=== PATIENT | male | born 1960 | race Two or more races ===

== ENCOUNTER 2023-06-27 02:14 | Inpatient (IN) | payer OTHER, MEDICAID ==
[~2023-06-27] VITALS: Ht 188 cm; Wt 120.0 kg
[2023-06-27 03:12] LABS: Basophils # (auto) 0 10 ^3/uL (0-0.2); Eosinophils # (auto) 0.1 10 ^3/uL (0-0.8); Nucleated Red Blood Cells % 0.1 %
[2023-06-27 03:14] LABS: Basophils % (auto) 0.2 % (0.0-2.0); Eosinophils % (auto) 0.8 % (0.0-7.0); Hematocrit 47.1 % (41.0-53.0); Hemoglobin 15.7 g/dL (13.5-17.5); Lymphocytes # (auto) 0.9 10 ^3/uL (0.4-5.4); Lymphocytes % (auto) 9.8 % (10.0-50.0); Mean Corpuscular Hemoglobin 26.8 pg (28.0-32.0); Mean Corpuscular Hgb Conc. 33.4 g/dL (32.0-36.0); Mean Corpuscular Volume 80.3 fL (80.0-100.0); Monocytes # (auto) 1.3 10 ^3/uL (0-1.3); Monocytes % (auto) 14.2 % (0.0-12.0); Neutrophils # (auto) 7.1 10 ^3/uL (1.6-8.6); Red Blood Cells 5.86 10^6/uL (4.5-5.90); Red Cell Distribution Width 14.6 % (11.8-14.3); White Blood Cell 9.5 10^3/uL (4.4-10.8)
[2023-06-27 03:27] LABS: Chloride 105 mmol/L (98-107); Potassium 3.5 mmol/L (3.5-5.1); Sodium 139 mmol/L (136-145)
[2023-06-27 03:28] LABS: Anion Gap 7 (5-15); Calcium 9.1 mg/dL (8.7-10.4); Carbon Dioxide 27 mmol/L (20-30)
[2023-06-27 03:33] LABS: BUN/Creatinine Ratio 5.4 (10.0-20.0); Blood Urea Nitrogen 7 mg/dL (9-23); Glucose 138 mg/dL (74-106)
[2023-06-27 05:30] VITALS: PULSE 94; RESP 27; O2SAT 96
[2023-06-27] MEDS: cefTRIAXone 1GM/50ML D5W 50 ML IV ONE (05:31)
[2023-06-27] MEDS: AZITHROMYCIN 250 MG TAB PO ONE (05:32)
[2023-06-27] MEDS ORDERED: ONDANSETRON HCL 4 MG/2 ML VIAL IV PRN (07:15)
[2023-06-27] MEDS ORDERED: ALBUTEROL SULF 2.5 MG/0.5ML(0.5%) NEB SOLN NEB PRN (07:15)
[2023-06-27] MEDS ORDERED: FUROSEMIDE 20 MG TAB PO SCH ×2 (07:15→10:00)
[2023-06-27] MEDS ORDERED: MORPHINE SULFATE INJ 2 MG/ml SYRG IV PRN (07:15)
[2023-06-27] MEDS ORDERED: NITROGLYCERIN 0.4 MG SL TAB SL PRN (07:15)
[2023-06-27 07:28] VITALS: BP 133/89; PULSE 82; RESP 19; TEMP 99.2; O2SAT 95; O2SAT 96
[2023-06-27 07:30] VITALS: PULSE 88; RESP 20; O2SAT 94
[2023-06-27] MEDS: ACETAMINOPHEN 325 MG TAB PO PRN (07:50)
[2023-06-27 08:28] LABS: COVID19 ANTIGEN SOFIA FIA POSITIVE (NEGATIVE)
[2023-06-27] MEDS: CARVEDILOL 12.5 MG TAB PO SCH (10:11)
[2023-06-27] MEDS: hydrALAZINE HCL 25 MG TAB PO SCH (10:11)
[2023-06-27] MEDS: SACUBITRIL-VALSARTAN 24mg/26mg TAB PO SCH (10:11)
[2023-06-27] MEDS: FUROSEMIDE 20 MG TAB PO SCH (10:11)
[2023-06-27] MEDS: amLODIPine BESYLATE 5 MG TAB PO SCH (10:12)
[2023-06-27] MEDS: EMPAGLIFLOZIN 10 MG TAB PO SCH (10:41)
[2023-06-27 18:21] VITALS: PULSE 94; RESP 20; O2SAT 95
[2023-06-27] MEDS ORDERED: CLON0.1D7 TOP (19:21)
[2023-06-27] MEDS ORDERED: SACU1TAB7 PO (19:21)
[2023-06-27] MEDS ORDERED: CARV25TA55 PO (19:21)
[2023-06-27] MEDS ORDERED: EMPA1TAB PO (19:21)
[2023-06-27] MEDS ORDERED: CONT1KIT21 (19:21)
[2023-06-27] MEDS ORDERED: DULA0.5I SC (19:21)
[2023-06-27] MEDS ORDERED: HYDR-4297 PO (19:21)
[2023-06-27] MEDS ORDERED: AMLO1TAB23 PO (19:21)
[2023-06-27 20:00] VITALS: PULSE 85; PULSE 97; RESP 20
[2023-06-27 22:00] VITALS: BP_SYST 108; BP_SYST 147; BP_SYST 148; BP_DIAS 56; BP_DIAS 83; PULSE 85; RESP 20; O2SAT 99
[2023-06-27 23:53] LABS: Urine Bacteria NONE SEEN /hpf (None Seen); Urine Blood Negative /uL (Negative); Urine Clarity Clear (Clear); Urine Protein, UAD Negative (Negative); Urine Specific Gravity 1.021 (1.001-1.035); Urine Urobilinogen Normal (Negative); Urine WBC 9 /hpf (0 - 3); Urine pH 7.5 (5.0-8.0)
[2023-06-27 23:54] LABS: Urine Color Straw (Yellow)
[2023-06-28] VITALS (9 sets, daily range): BP systolic 121–162; BP diastolic 72–100; PULSE 9–98; RESP 18–20; TEMP 98.8–100.3; O2SAT 93–97
[2023-06-28 07:59] LABS: Basophils # (auto) 0 10 ^3/uL (0-0.2); Basophils % (auto) 0.5 % (0.0-2.0); Monocytes # (auto) 1.1 10 ^3/uL (0-1.3); Neutrophils # (auto) 5.1 10 ^3/uL (1.6-8.6)
[2023-06-28 08:02] LABS: Eosinophils # (auto) 0.2 10 ^3/uL (0-0.8); Hematocrit 48.4 % (41.0-53.0); Lymphocytes # (auto) 1.3 10 ^3/uL (0.4-5.4); Lymphocytes % (auto) 17.2 % (10.0-50.0); Mean Corpuscular Hemoglobin 26.2 pg (28.0-32.0); Mean Corpuscular Volume 79.2 fL (80.0-100.0); Monocytes % (auto) 13.7 % (0.0-12.0); Neutrophils % (auto) 66.6 % (37.0-80.0); Nucleated Red Blood Cells % 0.5 %; Red Cell Distribution Width 14.7 % (11.8-14.3); White Blood Cell 7.7 10^3/uL (4.4-10.8)
[2023-06-28] MEDS: cefTRIAXone 1GM/50ML D5W 50 ML IV SCH (08:30)
[2023-06-28] MEDS: AZITHROMYCIN 500MG/ 250ML 250 ML IV SCH (09:55)
[2023-06-28] MEDS: ENOXAPARIN SOD 100 MG/1 ML SYRINGE SC STA (11:47)
[2023-06-28 12:15] LABS: INR 1.15 (0.9-1.15); Partial Thromboplastin Time 30.5 SEC (24.5-34.5)
[2023-06-28] MEDS: ALBUTEROL SULF HFA 90MCG INH 200DOSE IN PRN (12:45)
[2023-06-28] MEDS: IOHEXOL 350 MG/ML 100ML IJ ONE (13:15)
[2023-06-28] MEDS: TEMAZEPAM 15 MG CAP PO PRN (22:32)
[2023-06-29] VITALS (9 sets, daily range): BP systolic 109–143; BP diastolic 71–91; PULSE 74–89; RESP 16–19; TEMP 97.5–101.7; O2SAT 94–96
[2023-06-29 09:32] LABS: Magnesium 2.1 mg/dL (1.6-2.6)
[2023-06-29] MEDS: EMPAGLIFLOZIN 10 MG TAB PO SCH (09:49)
[2023-06-29] MEDS: FUROSEMIDE 20 MG/2 ML VIAL IV SCH (09:56)
[2023-06-29] MEDS: ENOXAPARIN SOD 40 MG/0.4 ML SYRINGE SC ONE (12:06)
[2023-06-29] MEDS: SACUBITRIL-VALSARTAN 24mg/26mg TAB PO SCH (21:32)
[2023-06-30] VITALS (7 sets, daily range): BP systolic 114–137; BP diastolic 64–81; PULSE 75–88; RESP 16–21; TEMP 97.4–100; O2SAT 92–100
[2023-06-30 05:57] LABS: Basophils # (auto) 0 10 ^3/uL (0-0.2); Basophils % (auto) 0.3 % (0.0-2.0); Eosinophils # (auto) 0 10 ^3/uL (0-0.8); Lymphocytes # (auto) 0.9 10 ^3/uL (0.4-5.4); Monocytes # (auto) 0.7 10 ^3/uL (0-1.3); Neutrophils # (auto) 3.6 10 ^3/uL (1.6-8.6); Nucleated Red Blood Cells % 0.3 %; White Blood Cell 5.2 10^3/uL (4.4-10.8)
[2023-06-30 05:58] LABS: Eosinophils % (auto) 0.4 % (0.0-7.0); Hematocrit 46.6 % (41.0-53.0); Hemoglobin 15.7 g/dL (13.5-17.5); Lymphocytes % (auto) 17.6 % (10.0-50.0); Mean Corpuscular Hemoglobin 26.3 pg (28.0-32.0); Mean Corpuscular Hgb Conc. 33.8 g/dL (32.0-36.0); Mean Corpuscular Volume 77.8 fL (80.0-100.0); Monocytes % (auto) 12.9 % (0.0-12.0); Neutrophils % (auto) 68.8 % (37.0-80.0); Red Blood Cells 5.99 10^6/uL (4.5-5.90); Red Cell Distribution Width 14.1 % (11.8-14.3)
[2023-06-30 06:04] LABS: Alanine Aminotransferase 20 U/L (7-40); Albumin 4.2 g/dL (3.2-4.8); Alkaline Phosphatase 57 U/L (46-116); Anion Gap 7 (5-15); Aspartate Aminotransferase 22 U/L (13-40); BUN/Creatinine Ratio 9.2 (10.0-20.0); Bilirubin, Total 0.5 mg/dL (0.2-1.0); Blood Urea Nitrogen 11 mg/dL (9-23); Calcium 8.7 mg/dL (8.7-10.4); Carbon Dioxide 27 mmol/L (20-30); Chloride 102 mmol/L (98-107); Glucose 116 mg/dL (74-106); Potassium 3.3 mmol/L (3.5-5.1); Sodium 136 mmol/L (136-145); Total Protein 7.3 g/dL (5.7-8.2)
[2023-06-30] MEDS: SPIRONOLACTONE 25 MG TAB PO SCH (08:54)
[2023-06-30] MEDS: ENOXAPARIN SOD 40 MG/0.4 ML SYRINGE SC SCH (08:54)
[2023-06-30] MEDS: PANTOPRAZOLE 40 MG TAB PO ONE (16:09)
[2023-06-30] MEDS: NYSTATIN (MOUTH-THROAT) 500,000 UNITS/5 ML SUSP MT ONE (16:11)
[2023-06-30] MEDS: POTASSIUM EFFERVESENT TAB 25 MEQ PO ONE (16:11)
[2023-06-30] MEDS: NYSTATIN (MOUTH-THROAT) 500,000 UNITS/5 ML SUSP MT SCH (17:43)
[2023-06-30] MEDS: guaiFENesin-DM 100/10mg/5ml SYR PO PRN (23:25)
[2023-07-01] VITALS (9 sets, daily range): BP systolic 107–128; BP diastolic 59–77; PULSE 71–88; RESP 16–20; TEMP 36.9; O2SAT 92–98
[2023-07-01 08:13] LABS: Anion Gap 8 (5-15); Calcium 9.3 mg/dL (8.5-10.1); Carbon Dioxide 28 mmol/L (20-30); Chloride 102 mmol/L (98-107); Potassium 3.5 mmol/L (3.5-5.1); Sodium 138 mmol/L (136-145)
[2023-07-01 08:19] LABS: BUN/Creatinine Ratio 10.3 (10.0-20.0); Blood Urea Nitrogen 11 mg/dL (9-23); Glucose 104 mg/dL (74-106)
[2023-07-01 09:03] LABS: Hepatitis B Surface Antigen Negative (Negative)
[2023-07-01] MEDS: PANTOPRAZOLE 40 MG TAB PO SCH (09:20)
[2023-07-01] MEDS: SPIRONOLACTONE 25 MG TAB PO SCH (09:21)
[2023-07-01 09:27] LABS: Hepatitis C Antibody Negative (Negative)
[2023-07-02 05:00] VITALS: BP 106/67; PULSE 76; RESP 20; TEMP 99; O2SAT 93
[2023-07-02 08:00] VITALS: PULSE 85; RESP 20
[2023-07-02 09:00] VITALS: BP 106/61; PULSE 80; RESP 16; TEMP 98.9; O2SAT 92
[2023-07-02] MEDS: AZITHROMYCIN 250 MG TAB PO SCH (09:33)
[2023-07-02] MEDS ORDERED: ZINC220C10 PO (10:57)
[2023-07-02] MEDS ORDERED: ASCO500C49 PO (10:57)
[2023-07-02] MEDS ORDERED: DOXY-346 PO (10:57)
[2023-07-02 11:11] VITALS: BP 110/65; PULSE 90
[2023-07-02 11:30] VITALS: O2SAT 92
[2023-07-02 12:29] VITALS: BP 112/71; PULSE 83; RESP 18; TEMP 99.5; O2SAT 96
== END 2023-07-02 12:10 | disposition home or self-care (01) | DRG 177 ==
LOC: ER 02:14 → TELE 07:01 → TELE-EAST 18:01
PROVIDERS: ADMIT Nurse Practitioner; ATTEND Family Medicine
DX: U07.1 COVID-19 (principal); I21.A1 Myocardial infarction type 2; J12.82 Pneumonia due to coronavirus disease 2019; J96.01 Acute respiratory failure with hypoxia; B37.0 Candidal stomatitis; I42.0 Dilated cardiomyopathy; I24.89 Other forms of acute ischemic heart disease; I50.22 Chronic systolic (congestive) heart failure; I11.0 Hypertensive heart disease with heart failure; E11.9 Type 2 diabetes mellitus without complications; E78.5 Hyperlipidemia, unspecified; E66.9 Obesity, unspecified; K12.1 Other forms of stomatitis; Z68.34 Body mass index [BMI] 34.0-34.9, adult; Z88.0 Allergy status to penicillin; Z88.5 Allergy status to narcotic agent; Z87.01 Personal history of pneumonia (recurrent); Z82.49 Family history of ischemic heart disease and other diseases of the circulatory system
CPT/HCPCS: 36415; 71045; 71275; 80048; 80053; 80061; 81001; 83036; 83605; 83735; 83880; 84443; 84484; 85025; 85610; 85730; 86803; 87040; 87340; 87426; 93005; 93306; 93970; 94640; 99291; G0378